=== PATIENT | male | born 1990 | race Caucasian/White ===

== ENCOUNTER 2020-08-20 06:17 | Emergency (ER) | payer SELFPAY ==
[~2020-08-20] VITALS: Ht 175.3 cm; Wt 86.0 kg
[2020-08-20 06:35] VITALS: BP 127/77
[2020-08-20] MEDS ORDERED: CIPR7.5D RIGHT EAR (07:18)
--- NOTE | 2020-08-20 07:19 | PHYS DOC ---
Past Medical History Past Medical History: Asthma Past Surgical History: Other Additional Past Surgical Histo: L chest Ca-deposit excision Smoking Status: Current Every Day Smoker Alcohol Use: None General Adult EDM: Chief Complaint: NAUSEA/VOMITING/DIARRHEA HPI: HPI: 30-year-old male past medical history of asthma presents the ED with his female spouse, (patient consents to his/her/their knowledge and involvement in pts' medical care), presents to the ED with complaints of right ear pain and popping that occurred while patient was vomiting around 3 AM this morning after eating at [employer] stating, "I think I ate something bad." Reports girlfriend had similar symptoms. Reports associated decreased hearing in right ear. No history of diving, hiking/high-altitudes, flying, recent swimming or difficulties equalizing middle ear pressure. Denies any current nausea or vomiting. No prior injury to the right ear. Review of Systems: Review of Systems: Constitutional: Denies fever or chills. [] Eyes: Denies change in visual acuity. [] HENT: Denies nasal congestion or sore throat or earache or ear drainage Respiratory: Denies cough or shortness of breath. [] Cardiovascular: Denies chest pain or hemoptysis GI: Denies nausea, vomiting, Musculoskeletal: Denies back pain or joint pain. [] Integument: Denies rash or diaphoresis Neurologic: Denies headache, dizziness, ataxia, focal weakness or sensory changes. [] Psychiatric: Denies depression or anxiety. [] Heart Score: C/O Chest Pain: No Risk Factors: Risk Factors: DM, Current or recent (<one month) smoker, HTN, HLP, family history of CAD, obesity. Risk Scores: Score 0 - 3: 2.5% MACE over next 6 weeks - Discharge Home Score 4 - 6: 20.3% MACE over next 6 weeks - Admit for Clinical Observation Score 7 - 10: 72.7% MACE over next 6 weeks - Early Invasive Strategies Allergies: Allergies: Allergies Coded Allergies Type Severity Reaction Last Updated Verified morphine Adverse Reaction Intermediate n/v 08/20/20 Yes Physical Exam: PE: Constitutional: Well developed, well nourished, no acute distress, non-toxic appearance, smells of tobacco HENT: Normocephalic, atraumatic, cerumen the left ear with partially visualized tympanic membrane with no erythema or effusion, right tympanic membrane intact with no erythema-very small less than 1 mm effusion, no obvious perforation Eyes: PERRLA, EOMI, conjunctiva normal-no injection, no discharge. Neck: Normal range of motion, supple, Cardiovascular: S1/2 present, regular rhythm Lungs & Thorax: Speaking in full sentences, bilateral equal chest rise, no tachypnea or increased work of breathing Skin: Warm, dry, no erythema, no rash. [] Extremities: No tenderness, no deformity Neurologic: Alert and oriented X 3, normal motor function, normal sensory function, no focal deficits noted. [] Psychologic: Affect normal, judgement normal, mood normal. [] Current Patient Data: Vital Signs: Vital Signs Date Time Temp Pulse Resp B/P (MAP) Pulse Ox O2 Delivery O2 Flow Rate FiO2 08/20/20 06:35 98.3 75 20 127/77 (94) 98 Room Air 98.3 EKG: EKG: [] Radiology/Procedures: Radiology/Procedures: [] Course & Med Decision Making: Course & Med Decision Making Pertinent Labs and Imaging studies reviewed. (See chart for details) Concern for right ear popping with mild hearing loss -no obvious perforation, will treat with Ciprodex. Patient with no associated dizziness, facial palsy or neurologic deficits. Will discharge home with strict ED return precautions were given for dizziness, neurologic deficits, severe headache, syncope or head injury. Encouraged urgent outpatient follow-up with PMD and ENT for definitive management. Life-threatening processes were considered but are low suspicion at this time, given history, physical exam and ED workup. Pt was educated on all prescription medications and adverse effects. All patient's questions were answered and pt was stable at time of discharge. Life/limb-threatening differential includes but is not limited to, auricular hematoma or perichondritis, malignant otitis externa, otitis externa or media, otomycosis, bullous myringitis, mastoiditis, hearing loss or vestibular disorder, tympanic membrane rupture/perforation/barotrauma, herpes zoster oticus, contact dermatitis, cholesteatoma, meningitis/encephalitis, brain abscess or venous/cavernous/cerebral sinus thrombosis. I spoken with the patient and her caregivers. I explained the patient's condition, diagnoses and treatment plan based on the information available to me at this time. I have answered the patient and her caregiver's questions and addressed any concerns. The patient and her caregivers have a good understanding of patient's diagnosis, condition and treatment plan as can be expected at this point. Vital signs have been stable. Patient's condition is stable and appropriate for discharge from the emergency department. Patient will pursue further outpatient evaluation with primary care physician or other designated or consulting physician as outlined in the discharge instructions. The patient and/or caregivers are agreeable to this plan of care and follow-up instructions have been explained in detail. The patient and/or caregivers have received these instructions in written form and have expressed an understanding of the discharge instructions. The patient and/or caregivers are aware that any significant change of condition or worsening of symptoms should prompt immediate return to this or the closest emergency department or call to 1. Carlene Disclaimer: Carlene Disclaimer: This electronic medical record was generated, in whole or in part, using a voice recognition dictation system. Departure Departure Impression: Primary Impression: Otalgia, right ear Additional Impression: Nausea & vomiting Disposition: 01 HOME / SELF CARE / HOMELESS Condition: STABLE Referrals: NO PCP (PCP) Follow-up with your primary care physician in 24 to 48 hours OR FOLLOW UP WITH FAMILY MEDICINE: [address] [facility], [facility] [address] [place] [address] Patient Instructions: Nausea and Vomiting, Otalgia, Tympanic Membrane Perforation-SportsMed Additional Instructions: FOLLOW UP WITH ENT: FOR DEFINITIVE MANAGEMENT within 3-5 days Otolaryngology [address], [address] [place] [address] [facility] [address] [place] [id number] EMERGENCY DEPARTMENT GENERAL DISCHARGE INSTRUCTIONS Thank you for coming to [facility] Emergency Department (ED) today and trusting us with you care. We trust that you had a positive experience in our Emergency Department. If you wish to speak to the department management, you may call the Director at [phone]. YOUR FOLLOW UP INSTRUCTIONS ARE FOLLOWS: 1. Do you have a private Doctor? If you do not have a private doctor, please ask for a resource list of physicians or clinics that may be able to assist you with follow up care. 2. The Emergency Physicain has interpreted your x-rays. The X-Ray specialist will also review them. If there is a change in the findings, you will be notified in 48 hours when at all possible. 3. A lab test or culture has been done, your results will be reviewed and you will be notified if you need a change in treatment. ADDITIONAL INSTRUCTIONS AND INFORMATION: 1. Your care today has been supervised by a physician who is specially trained in emergency care. Many problems require more than one evaluation for a complete diagnosis and treatment. We recommend that you schedule your follow up appointment as recommended to ensure complete treatment of you illness or injury. If you are unable to obtain follow up care and continue to have a problem, or if your condition worsens, we recommend that you return to the ED. 2. We are not able to safely determine your condition over the phone nor are we able to give sound medical advice over the phone. For these safety reasons, if you call for medical advice we will ask you to come to the ED for further evaluation. 3. If you have any questions regarding these discharge instructions please call the ED at [phone]. SAFETY INFORMATION: In the interest of safety, wellness, and injury prevention; we encourage you to wear your sealbelt, if you smoke; quite smoking, and we encourage family to use a protective helmet for bicycling and other sporting events that present an increased risk for head injury. IF YOUR SYMPTOMS WORSEN OR NEW SYMPTOMS DEVELOP, OR YOU HAVE CONCERNS ABOUT YOUR CONDITION; OR IF YOUR CONDITION WORSENS WHILE YOU ARE WAITING FOR YOUR FOLLOW UP APPOINTMENT; EITHER CONTACT YOUR PRIMARY CARE DOCTOR, THE PHYSICIAN WHOSE NAME AND NUMBER YOU WERE GIVEN, OR RETURN TO THE ED IMMEDIATELY. Scripts Ciprofloxacin Hcl/Dexameth (CIPRODEX OTIC SUSPENSION) 7.5 Ml Drops.susp 3 DROP RIGHT EAR BID for 7 Days, #7.5 ML Prov: KIA KRUSE DO 08/20/20 KIA KRUSE DO Aug 20, 2020 07:19
== END 2020-08-20 08:09 | disposition home or self-care (01) ==
LOC: ER 06:17
DX: H92.01 Otalgia, right ear (principal); R11.2 Nausea with vomiting, unspecified; J45.909 Unspecified asthma, uncomplicated; F17.200 Nicotine dependence, unspecified, uncomplicated; Z88.5 Allergy status to narcotic agent
CPT/HCPCS: 99283

== ENCOUNTER 2020-11-13 05:46 | Observation (INO) | payer SELFPAY ==
[~2020-11-13] VITALS: Ht 175.3 cm; Wt 80.2 kg
[~2020-11-13 05:46] MED LIST: CIPR7.5D RIGHT EAR
--- NOTE | 2020-11-13 06:09 | ED.ADGEN ---
Past Medical History Past Medical History: Asthma Past Surgical History: Other Additional Past Surgical Histo: L chest Ca-deposit excision Smoking Status: Current Every Day Smoker Alcohol Use: None General Adult EDM: Chief Complaint: CHEST PAIN HPI: HPI: Patient is a 30-year-old male who arrives ambulatory to the emergency department complaining of chest pain. Patient reports he was sleeping when he developed substernal chest pain. Patient reports his pain is heaviness and experiencing shortness of air. Patient reports has had pain like this previously whenever he used energy drinks. Patient states he does not use energy drinks anymore. Patient further states he has not been ill or experience any fever or cough. He further denies any known cardiac history. He is awake, alert and nontoxic- appearing. Review of Systems: Review of Systems: Constitutional: Denies fever or chills. [] Eyes: Denies change in visual acuity. [] HENT: Denies nasal congestion or sore throat. [] Respiratory: Reports shortness of air. Denies cough. [] Cardiovascular: Reports chest pain [] GI: Denies abdominal pain, nausea, vomiting, bloody stools or diarrhea. [] : Denies dysuria. [] Musculoskeletal: Denies back pain or joint pain. [] Integument: Denies rash. [] Neurologic: Denies headache, focal weakness or sensory changes. [] Endocrine: Denies polyuria or polydipsia. [] Lymphatic: Denies swollen glands. [] Psychiatric: Denies depression or anxiety. [] Current Medications: Current Medications Medications (Trade) Dose Ordered Sig/[facility] Start Time Stop Time Status Last Admin Dose Admin Aspirin (Aspirin Chewable) 324 mg 1X ONCE 11/13/20 06:30 11/13/20 06:32 DC 11/13/20 06:23 324 MG Allergies: Allergies: Allergies Coded Allergies Type Severity Reaction Last Updated Verified morphine Adverse Reaction Intermediate n/v 08/20/20 Yes Physical Exam: PE: Constitutional: Well developed, well nourished, no acute distress, non-toxic appearance. [] HENT: Normocephalic, atraumatic, bilateral external ears normal, oropharynx moist, no oral exudates, nose normal. [] Eyes: PERRLA, EOMI, conjunctiva normal, no discharge. [] Neck: Normal range of motion, no tenderness, supple, no stridor. [] Cardiovascular:Heart rate regular rhythm, no murmur [] Lungs & Thorax: Bilateral breath sounds clear to auscultation [] Abdomen: Bowel sounds normal, soft, no tenderness, no masses, no pulsatile masses. [] Skin: Warm, dry, no erythema, no rash. [] Back: No tenderness, no CVA tenderness. [] Extremities: No tenderness, no cyanosis, no clubbing, ROM intact, no edema. [] Neurologic: Alert and oriented X 3, normal motor function, normal sensory function, no focal deficits noted. [] Psychologic: Affect normal, judgement normal, mood normal. [] Current Patient Data: Labs: Laboratory Tests Test 11/13/20 06:14 11/13/20 06:25 White Blood Count 8.3 x10^3/uL (4.0-11.0) Red Blood Count 4.27 x10^6/uL (4.30-5.70) L Hemoglobin 13.1 g/dL (13.0-17.5) Hematocrit 38.1 % (39.0-53.0) L Mean Corpuscular Volume 89 fL (79-100) Mean Corpuscular Hemoglobin 31 pg (25-35) Mean Corpuscular Hemoglobin Concent 34 g/dL (31-37) Red Cell Distribution Width 14.4 % (11.5-14.5) Platelet Count 310 x10^3/uL (140-400) Neutrophils (%) (Auto) 71 % (31-73) Lymphocytes (%) (Auto) 22 % (24-48) L Monocytes (%) (Auto) 5 % (0-9) Eosinophils (%) (Auto) 2 % (0-3) Basophils (%) (Auto) 1 % (0-3) Neutrophils # (Auto) 5.9 x10^3/uL (1.8-7.7) Lymphocytes # (Auto) 1.8 x10^3/uL (1.0-4.8) Monocytes # (Auto) 0.4 x10^3/uL (0.0-1.1) Eosinophils # (Auto) 0.1 x10^3/uL (0.0-0.7) Basophils # (Auto) 0.1 x10^3/uL (0.0-0.2) Sodium Level 141 mmol/L (136-145) Potassium Level 3.6 mmol/L (3.5-5.1) Chloride Level 103 mmol/L (98-107) Carbon Dioxide Level 27 mmol/L (21-32) Anion Gap 11 (6-14) Blood Urea Nitrogen 8 mg/dL (8-26) Creatinine 1.0 mg/dL (0.7-1.3) Estimated GFR (Cockcroft-Gault) 87.7 BUN/Creatinine Ratio 8 (6-20) Glucose Level 85 mg/dL (70-99) Calcium Level 9.1 mg/dL (8.5-10.1) Total Bilirubin 0.5 mg/dL (0.2-1.0) Aspartate Amino Transferase (AST) 19 U/L (15-37) Alanine Aminotransferase (ALT) 22 U/L (16-63) Alkaline Phosphatase 93 U/L (46-116) Troponin I Quantitative < 0.017 ng/mL (0.000-0.055) HD-Dut-L-Type Natriuretic Peptide 124 pg/mL (0-124) Total Protein 7.3 g/dL (6.4-8.2) Albumin 3.7 g/dL (3.4-5.0) Albumin/Globulin Ratio 1.0 (1.0-1.7) Urine Opiates Screen Neg (NEG) Urine Methadone Screen Neg (NEG) Urine Barbiturates Neg (NEG) Urine Phencyclidine Screen Neg (NEG) Urine Amphetamine/Methamphetamine Neg (NEG) Urine Benzodiazepines Screen Neg (NEG) Urine Cocaine Screen Neg (NEG) Urine Cannabinoids Screen Pos (NEG) Urine Ethyl Alcohol Neg (NEG) Laboratory Tests 11/13/20 06:14 Laboratory Tests 11/13/20 06:14 Vital Signs: Vital Signs Date Time Temp Pulse Resp B/P (MAP) Pulse Ox O2 Delivery O2 Flow Rate FiO2 11/13/20 05:49 98.0 83 18 137/70 (92) 97 Room Air 98.0 EKG: EKG: [] EKG was obtained at 5:49 AM and revealed a sinus rhythm with ventricular rate of 83 bpm. There are premature atrial complexes present without acute ST/T wave changes to denote ischemia. Heart Score: C/O Chest Pain: Yes HEART Score for Chest Pain: HEART Score for Chest Pain Response (Comments) Value History Slighlty/Non-Suspicious 0 ECG Normal 0 Age < 45 0 Risk Factors 1 or 2 Risk Factors 1 Troponin < Normal Limit 0 Total 1 Risk Factors: Risk Factors: DM, Current or recent (<one month) smoker, HTN, HLP, family history of CAD, obesity. Risk Scores: Score 0 - 3: 2.5% MACE over next 6 weeks - Discharge Home Score 4 - 6: 20.3% MACE over next 6 weeks - Admit for Clinical Observation Score 7 - 10: 72.7% MACE over next 6 weeks - Early Invasive Strategies Radiology/Procedures: Radiology/Procedures: [] Impression: [facility] [address] [place] [address] IMAGING REPORT Signed PATIENT: DOMONIQUE MALIN ACCOUNT: [id number] : 1990 LOCATION: ER AGE: 30 SEX: M EXAM STATUS: REG ER ORD. PHYSICIAN: SAV STARK DO REASON: pain PROCEDURE: PORTABLE CHEST 1V EXAM: CHEST ONE VIEW. HISTORY: Chest pain. COMPARISON: None. FINDINGS: A frontal view of the chest is obtained. There are no confluent infiltrates. There is no pneumothorax or pleural effusion. The heart is not enlarged. IMPRESSION: 1. No confluent infiltrates. Electronically signed by: Cassidy Haro MD (11/13/2020 6:59 AM) [facility] DICTATED and SIGNED BY: KASIA HARO MD DATE: 11/13/20 [id number] 0 Course & Med Decision Making: Course & Med Decision Making Pertinent Labs and Imaging studies reviewed. (See chart for details) [] Carlene Disclaimer: Carlene Disclaimer: This electronic medical record was generated, in whole or in part, using a voice recognition dictation system. Departure Departure Impression: Primary Impression: Chest pain Additional Impressions: Person under investigation for COVID-19 Tobacco dependence Disposition: ADMITTED INPATIENT Admitting Physician: LAVONNE Condition: STABLE Referrals: NO PCP (PCP) Problem Qualifiers SAV STARK DO Nov 13, 2020 06:09
[2020-11-13 06:23] LABS: BASO # 0.1 x10^3/uL (0.0-0.2); BASO % 1 % (0-3); EOS # 0.1 x10^3/uL (0.0-0.7); EOS % 2 % (0-3); HEMATOCRIT 38.1 % (39.0-53.0); HEMOGLOBIN 13.1 g/dL (13.0-17.5); LYMPH # 1.8 x10^3/uL (1.0-4.8); LYMPH % 22 % (24-48); MEAN CORPUSCULAR HEMOGLOBIN 31 pg (25-35); MEAN CORPUSCULAR HGB CONC 34 g/dL (31-37); MEAN CORPUSCULAR VOLUME 89 fL (79-100); MONO # 0.4 x10^3/uL (0.0-1.1); MONO % 5 % (0-9); NEUT # 5.9 x10^3/uL (1.8-7.7); NEUT % 71 % (31-73); PLATELET COUNT 310 x10^3/uL (140-400); RED BLOOD COUNT 4.27 x10^6/uL (4.30-5.70); RED CELL DISTRIBUTION WIDTH 14.4 % (11.5-14.5); WHITE BLOOD COUNT 8.3 x10^3/uL (4.0-11.0)
--- NOTE | 2020-11-13 06:26 | EKG ---
[facility] [address] [place] [address] Test Date: 2020-11-13 Test Time: 05:49:17 Pat Name: DOMONIQUE MALIN Department: Room: Gender: M [employer]: : 1990 Requested By: SAV STARK Order Number: [id number] Reading MD: Measurements Intervals [place] Rate: 83 P: 56 DE: 130 QRS: 43 QRSD: 86 T: 21 QT: 348 QTc: 409 Interpretive Statements SINUS RHYTHM ATRIAL PREMATURE COMPLEX(ES) OTHERWISE NORMAL ECG RI6.01 No previous ECG available for comparison
[2020-11-13] MEDS ORDERED: ASPIRIN CHEWABLE 81 MG TABLET. PO ONE ×2 (06:30→07:15)
[2020-11-13 06:38] LABS: CALCIUM 9.1 mg/dL (8.5-10.1); GFR 87.7; POTASSIUM 3.6 mmol/L (3.5-5.1)
[2020-11-13 06:43] LABS: ALBUMIN 3.7 g/dL (3.4-5.0); TOTAL BILIRUBIN 0.5 mg/dL (0.2-1.0); TOTAL PROTEIN 7.3 g/dL (6.4-8.2)
[2020-11-13 06:54] LABS: BARBITURATES NEG (NEG); BENZODIAZEPINES NEG (NEG); CANNABINOIDS POS (NEG); COCAINE NEG (NEG); METHADONE NEG (NEG); OPIATES NEG (NEG); PHENCYCLIDINE NEG (NEG)
[2020-11-13 06:55] LABS: AMPHETAMINE/METHAMPHETAMINE NEG (NEG)
--- NOTE | 2020-11-13 07:01 | RAD ---
EXAM: CHEST ONE VIEW. HISTORY: Chest pain. COMPARISON: None. FINDINGS: A frontal view of the chest is obtained. There are no confluent infiltrates. There is no pneumothorax or pleural effusion. The heart is not en larged. IMPRESSION: 1. No confluent infiltrates. Electronically signed by: Cassidy Haro MD (11/13/2020 6:59 AM) [facility]
[2020-11-13] MEDS ORDERED: ONDANSETRON PF 4 MG/2 ML VIAL. IVP PRN (07:15)
--- NOTE | 2020-11-13 08:00 | NUR ---
Patient arrived to room 669 from ER around 0800. Patient A&OX4. VSS. Still complains of pressure in midsternal chest. The patient, DOMONIQUE MALIN, 30 y/o, M admitted by JORGE HARE III, DO, was given written information regarding hospital policies, unit procedures and contact persons. Valuables were checked and noted. TAJ Thompson helped with admission questions. Will continue to monitor.
[2020-11-13 08:20] VITALS: BP 133/69
[2020-11-13 10:51] VITALS: BP 119/47
--- NOTE | 2020-11-13 10:54 | PDOC2 ---
CARDIAC CONSULT DATE OF CONSULT Date of Consult DATE: 11/13/20 TIME: 10:49 REASON FOR CONSULT Reason for Consult: Chest pain, bradycardia REFERRING PHYSICIAN Referring Physician: Dr. Perez SOURCE Source: Chart review, Patient HISTORY OF PRESENT ILLNESS HISTORY OF PRESENT ILLNESS This is a 30 yo male who presented to chest pain, palpitations. Patient reports he woke up this morning early with pressure in his central chest. Also experiencing intermittent sharp pain. No specific worsening or reliving factors. Pain does not radiate. No associated dizziness, diaphoresis, palpitations, SOA, or nausea/vomiting. No recent illness or fevers. Does reports history of "skipped beats" that prompted his to go to the ED several years ago. Reports this was contributed to his high intake of energy drinks. No longer consumes e nergy drinks although drinks multiple cokes daily. 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 Reports mother of heart failure in her late 30's. PAST MEDICAL HISTORY Cardiovascular: No pertinent hx Pulmonary: Asthma PAST SURGICAL HISTORY Past Surgical History: Other (has Ca deposit removed from breast) FAMILY HISTORY Family History: Heart Disease, Hypertension SOCIAL HISTORY Smoke: No ALCOHOL: none Drugs: Marijuana, Other (h/o meth use. clean 4 years ) Lives: Alone CURRENT MEDICATIONS CURRENT MEDICATIONS Current Medications Medications (Trade) Dose Ordered Sig/Jimmy Route PRN Reason Start Time Stop Time Status Last Admin Dose Admin Aspirin (Aspirin Chewable) 324 mg 1X ONCE PO 11/13/20 06:30 11/13/20 06:32 DC 11/13/20 06:23 ALLERGIES ALLERGIES: Coded Allergies: morphine (Verified Adverse Reaction, Intermediate, n/v, 08/20/20) ROS Review of System 14 point ROS conducted with pertinent positives noted above in HPI PHYSICAL EXAM General: Alert, Oriented X3, Cooperative, No acute distress HEENT: Atraumatic Lungs: Clear to auscultation Heart: Regular rate (SR/SB with frequent PAC's, PVC's ) Abdomen: Soft, No tenderness Extremities: No edema, Normal pulses Skin: No significant lesion Neuro: Normal speech, Sensation intact Psych/Mental Status: Mental status NL, Mood NL MUSCULOSKELETAL: No deformity VITALS/I&O VITALS/I&O: Vital Signs Date Time Temp Pulse Resp B/P (MAP) Pulse Ox O2 Delivery O2 Flow Rate FiO2 11/13/20 08:20 97.2 69 18 133/69 (90) 97 Room Air 97.2 LABS Lab: Laboratory Tests Test 11/13/20 06:14 11/13/20 06:25 11/13/20 09:20 White Blood Count 8.3 x10^3/uL (4.0-11.0) Red Blood Count 4.27 x10^6/uL (4.30-5.70) L Hemoglobin 13.1 g/dL (13.0-17.5) Hematocrit 38.1 % (39.0-53.0) L Mean Corpuscular Volume 89 fL (79-100) Mean Corpuscular Hemoglobin 31 pg (25-35) Mean Corpuscular Hemoglobin Concent 34 g/dL (31-37) Red Cell Distribution Width 14.4 % (11.5-14.5) Platelet Count 310 x10^3/uL (140-400) Neutrophils (%) (Auto) 71 % (31-73) Lymphocytes (%) (Auto) 22 % (24-48) L Monocytes (%) (Auto) 5 % (0-9) Eosinophils (%) (Auto) 2 % (0-3) Basophils (%) (Auto) 1 % (0-3) Neutrophils # (Auto) 5.9 x10^3/uL (1.8-7.7) Lymphocytes # (Auto) 1.8 x10^3/uL (1.0-4.8) Monocytes # (Auto) 0.4 x10^3/uL (0.0-1.1) Eosinophils # (Auto) 0.1 x10^3/uL (0.0-0.7) Basophils # (Auto) 0.1 x10^3/uL (0.0-0.2) Sodium Level 141 mmol/L (136-145) Potassium Level 3.6 mmol/L (3.5-5.1) Chloride Level 103 mmol/L (98-107) Carbon Dioxide Level 27 mmol/L (21-32) Anion Gap 11 (6-14) Blood Urea Nitrogen 8 mg/dL (8-26) Creatinine 1.0 mg/dL (0.7-1.3) Estimated GFR (Cockcroft-Gault) 87.7 BUN/Creatinine Ratio 8 (6-20) Glucose Level 85 mg/dL (70-99) Calcium Level 9.1 mg/dL (8.5-10.1) Total Bilirubin 0.5 mg/dL (0.2-1.0) Aspartate Amino Transferase (AST) 19 U/L (15-37) Alanine Aminotransferase (ALT) 22 U/L (16-63) Alkaline Phosphatase 93 U/L (46-116) Troponin I Quantitative < 0.017 ng/mL (0.000-0.055) < 0.017 ng/mL (0.000-0.055) OE-Env-R-Type Natriuretic Peptide 124 pg/mL (0-124) Total Protein 7.3 g/dL (6.4-8.2) Albumin 3.7 g/dL (3.4-5.0) Albumin/Globulin Ratio 1.0 (1.0-1.7) Urine Opiates Screen Neg (NEG) Urine Methadone Screen Neg (NEG) Urine Barbiturates Neg (NEG) Urine Phencyclidine Screen Neg (NEG) Urine Amphetamine/Methamphetamine Neg (NEG) Urine Benzodiazepines Screen Neg (NEG) Urine Cocaine Screen Neg (NEG) Urine Cannabinoids Screen Pos (NEG) Urine Ethyl Alcohol Neg (NEG) Laboratory Tests 11/13/20 06:14 Laboratory Tests 11/13/20 06:14 ASSESSMENT/PLAN ASSESSMENT/PLAN 1. Chest pain, atypical. AMI ruled out. EKG without significant acute changes 2. Arrhythmia; tele noted with frequent PVC's, PAC's 3. Sinus bradycardia; lowest 55. No pauses 4. Marjuana use 5. H/o meth use; clean x4 years 6. Family history of cardiomyopathy Recommendations Check TSH, Mg level Avoid AV marco blocking agents Echo to assess LV systolic function Supportive care ZEYAD BAPTISTE APRN Nov 13, 2020 10:53
[2020-11-13 12:48] LABS: CHOLESTEROL/HDL RATIO 4.2
--- NOTE | 2020-11-13 12:59 | HP ---
ADMIT DATE: 11/13/2020 CHIEF COMPLAINT: Chest pain. HISTORY OF PRESENT ILLNESS: The patient is a pleasant, relatively healthy 30-year-old male, presented to the ER today with chest pain. He is concerned that he might be having a heart attack because his mom and dad both in their 30s of coronary artery disease and heart failure. He also smokes. I discussed the case with ER physician. We are admitting the patient with consultation to Cardiology. PAST MEDICAL HISTORY: Tobacco abuse, asthma, left chest surgery for some type of calcium deposition. ALLERGIES: MORPHINE. FAMILY HISTORY: Coronary artery disease. His mom and dad of coronary artery disease and heart failure. SOCIAL HISTORY: He smokes. He is , has kids. MEDICATIONS: Reviewed, please refer to the MRAD. REVIEW OF SYSTEMS: CARDIAC: He complains of chest pain. GENERAL: No history of weight change, weakness or fevers. SKIN: No bruising, hair changes or rashes. EYES: No blurred, double or loss of vision. NOSE AND THROAT: No history of nosebleeds, hoarseness or sore throat. LUNGS: Denies cough, hemoptysis, wheezing or shortness of breath. GASTROINTESTINAL: Denies changes in appetite, nausea, vomiting, diarrhea or constipation. GENITOURINARY: No history of frequency, urgency, hesitancy or nocturia. NEUROLOGIC: Denies history of numbness, tingling, tremor or weakness. PSYCHIATRIC: No history of panic, anxiety or depression. ENDOCRINE: No history of heat or cold intolerance, polyuria or polydipsia. EXTREMITIES: Denies muscle weakness, joint pain, pain on walking or stiffness. PHYSICAL EXAMINATION: VITALS: Within normal limits and are stable. GENERAL: No apparent distress. Alert and oriented. HENT: Normocephalic atraumatic, external auditory canals are patent. EYES: Extraocular muscles are intact, pupils are equally round and reactive to light and accommodation. MUSCULOSKELETAL: Well developed, well nourished, good range of motion. ENDOCRINE: No thyromegaly was palpated. LYMPHATICS: No cervical chain or axillary nodes were noted. HEMATOPOIETIC: No bruising. NECK: Supple, no JVD, no thyromegaly was noted. LUNGS: Clear to auscultation in all lung morocho without rhonchi or wheezing. HEART: RRR, S1, S2 present. Peripheral pulses intact, no obvious murmurs were noted. ABDOMEN: Soft, nontender. Positive bowel sounds no organomegaly, normal bowel sounds. EXTREMITIES: Without any cyanosis, clubbing, or edema. Pedal pulses intact, Homans sign is negative. NEUROLOGIC: Normal speech, normal tone. A and O x 3, moves all extremities, no obvious focal deficits. PSYCHIATRIC: Normal affect, normal mood. Stable. SKIN: No ulcerations or rashes, good skin turgor, no jaundice. VASCULAR: Good capillary refill, neurovascular bundle appears to be intact. LABORATORY DATA: Troponin is 0. EKG shows sinus arrhythmia with some premature ventricular contractions. ASSESSMENT AND PLAN: Chest pain, rule out coronary artery disease. The patient has been admitted. We will check serial enzymes, serial EKGs, cardiac monitoring, home meds. DVT prophylaxis. Full code. Cigarette cessation education. Prognosis is guarded. [facility] [place] DR: Den TID: [id number]
--- NOTE | 2020-11-13 13:12 | NUR ---
SS following for discharge planning. SS reviewed pt chart and discussed with pt RN. Pt is from home with spouse and is currently on room air. Cardiology consulted. ECHO ordered. Self pay. Med Assist following. SS will continue to follow for discharge planning.
--- NOTE | 2020-11-13 17:11 | CARD ---
MR#: [id number] Date of Study: 11/13/2020 Ordering Physician: ZEYAD BAPTISTE, Referring Physician: ZEYAD BAPTISTE, Aston: Ernst Medrano [facility] APPROVED REPORT EXAM: Two-dimensional and M-mode echocardiogram with Doppler and color Doppler. Other Information Quality : AverageHR: 60bpm Rhythm : NSR INDICATION Chest pressure PVC's RISK FACTORS Smoking 2D DIMENSIONS Left Atrium(2D)3.6 (1.6-4.0cm)IVSd1.0 (0.7-1.1cm) Aortic Root(2D)2.9 (2.0-3.7cm)LVDd5.1 (3.9-5.9cm) LVOT Diameter2.1 (1.8-2.4cm)PWd1.0 (0.7-1.1cm) LVDs3.7 (2.5-4.0cm)FS (%) 27.5 % SV67.1 mlLVEF(%)53.1 (>50%) Aortic Valve AoV Peak Ricardo.170.7cm/sAoV VTI36.1cm AO Peak GR.11.7mmHgLVOT Peak Ricardo.81.7cm/s AO Mean GR.6mmHgAVA (VMAX)1.62cm2 Mitral Valve MV E Bygswfsi669.8cm/sMV E Peak Gr.4mmHg MV DECEL [id number] A Sgrxgvvh33.7cm/s MV E Mean Gr.1mmHgE/A Ratio2.3 Pulmonary Valve PV Peak Dnmvhzcl55.3cm/s Tricuspid Valve TR P. Lqyvvnko953pw/sTR Peak Gr.25mmHg LEFT VENTRICLE The left ventricle is normal size. There is normal left ventricular wall thickness. The left ventricu lar systolic function is normal. The Ejection Fraction is 55%. There is normal LV segmental wall padmini on. No left ventricle thrombus noted on this study. There is no ventricular septal defect visualized. There is no left ventricular aneurysm. There is no mass noted in the left ventricle. RIGHT VENTRICLE The right ventricle is normal size. There is normal right ventricular wall thickness. The right ventr icular systolic function is normal. ATRIA The left atrium size is normal. The right atrium size is normal. The interatrial septum is intact wit h no evidence for an atrial septal defect or patent foramen ovale as noted on 2-D or Doppler imaging. AORTIC VALVE The aortic valve is normal in structure and function. Doppler and Color Flow revealed no significant aortic regurgitation. There is no significant aortic valvular stenosis. There is no aortic valvular v egetation. MITRAL VALVE The mitral valve is normal in structure and function. There is no evidence of mitral valve prolapse. There is no mitral valve stenosis. Doppler and Color Flow revealed no mitral valve regurgitation note d. TRICUSPID VALVE The tricuspid valve is normal in structure and function. Doppler and Color Flow revealed trace tricus pid regurgitation. There is no tricuspid valve prolapse or vegetation. There is no tricuspid valve st enosis. PULMONIC VALVE The pulmonary valve is normal in structure and function. Doppler and Color Flow revealed no pulmonic valvular regurgitation. There is no pulmonic valvular stenosis. GREAT VESSELS The aortic root is normal in size. The ascending aorta is normal in size. The pulmonary artery is nor mal. The IVC is normal in size and collapses >50% with inspiration. PERICARDIAL EFFUSION There is no pleural effusion. There is no evidence of significant pericardial effusion. Critical Notification Critical Value: No <Conclusion> The left ventricular systolic function is normal. The Ejection Fraction is 55%. There is normal LV segmental wall motion. Trace tricuspid regurgitation. There is no evidence of significant pericardial effusion. Signed by : Duarte Potter, Electronically Approved : 11/13/2020 17:10:23
--- NOTE | 2020-11-13 17:30 | NUR ---
Patient had refused COVID PCR in ER, however wanted a visitor, Dr. Ana gibbons with a rapid COVID swab & if it is negative patient can have visitor. Patient allowed this RN to rapid swab him & is negative.
[2020-11-13 19:00] VITALS: BP 153/65
[2020-11-13 22:50] VITALS: BP 140/67
[2020-11-14 03:00] VITALS: BP 105/51
[2020-11-14 07:24] VITALS: BP 118/66
[2020-11-14 10:25] VITALS: BP 124/63
[2020-11-14] MEDS ORDERED: ATOR20TA58 PO (11:47)
--- NOTE | 2020-11-14 12:07 | NUR ---
SS following up with discharge planning. SS reviewed pt chart and discussed with pt RN. Pt is currently on room air. Self pay. Med Assist following. Discharge order on the chart for home with self care.
--- NOTE | 2020-11-14 12:40 | PDOC ---
[employer] PROGRESS NOTE Date of Service DOS: DATE: 11/14/20 TIME: 12:34 Chief Complaint Chief Complaint Chest pain Asthma Tobacco abuse Marijuana abuse History of Present Illness History of Present Illness 11/14/2020: Pt seen and examined. Discussed with RN. Chart reviewed. Pt in NAD. Family hx notable for CAD, HF, HTN. Discussed discharge with cardiology. Vitals/I&O Vitals/I&O: Vital Signs Date Time Temp Pulse Resp B/P (MAP) Pulse Ox O2 Delivery O2 Flow Rate FiO2 11/14/20 10:25 97.7 71 18 124/63 (83) 100 Room Air 97.7 I & O 11/13/20 11/13/20 11/14/20 15:00 23:00 07:00 Intake Total 500 ml 650 ml 500 ml Balance 500 ml 650 ml 500 ml Physical Exam General: Alert, Oriented X3, Cooperative, No acute distress Heart: Regular rate (SR/SB with frequent PAC's, PVC's ) Abdomen: Soft, No tenderness Extremities: No edema, Normal pulses Skin: No significant lesion Labs Labs: Laboratory Tests Test 11/13/20 16:05 SARS-CoV-2 Antigen (Rapid) Negative (NEGATIVE) Assessment and Plan Assessmemt and Plan Problems Medical Problems: (1) Chest pain Status: Acute (2) Person under investigation for COVID-19 Status: Acute (3) Tobacco dependence Status: Acute Chest pain Asthma Tobacco abuse Marijuana abuse Plan: 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 Justifications for Admission Other Justification JORGE HARE III DO Nov 14, 2020 12:40
--- NOTE | 2020-11-14 13:28 | DS ---
DATE OF DISCHARGE: 11/14/2020 ADMISSION DIAGNOSIS: Chest pain. DISCHARGE DIAGNOSES: Resolving atypical chest pain, previous history of drug abuse 4 years ago. HOSPITAL COURSE: The patient is a pleasant middle-aged male who presented with chest pain. We checked serial enzymes, serial EKGs. We consulted Cardiology. His workup so far is negative. I did talk to Dr. Haji today and he feels like the patient does have a slight arrhythmia at times, but perhaps this is secondary to his previous drug abuse many years ago. Basically, he is doing well. We will plan to discharge to home. DISPOSITION: Home. ACTIVITY: As tolerated. DIET: Low sodium. DISCHARGE MEDICATIONS: Please see the MRAD. Atorvastatin 20 a day and Cipro ear drops to the right ear. TOTAL TIME: Thirty four minutes. [place] [address]: Den TID: [id number]
--- NOTE | 2020-11-14 13:41 | NUR ---
Discharge Note: [facility] Discharge instructions and discharge home medications reviewed with Patient and a copy given. All questions have been answered and understanding verbalized. New prescription given and understanding verbalized. Pt walked out in stable condition.
--- NOTE | 2020-11-14 14:25 | PDOC ---
PROGRESS NOTES Date of Service DATE: 11/14/20 TIME: 14:23 Subjective Subjective Patient seen and examined Objective Objective Vital Signs Date Time Temp Pulse Resp B/P (MAP) Pulse Ox O2 Delivery O2 Flow Rate FiO2 11/14/20 10:25 97.7 71 18 124/63 (83) 100 Room Air 97.7 Intake and Output 11/14/20 07:00 Intake Total 1650 ml Balance 1650 ml Intake Oral 1650 ml # Voids 1 Physical Exam Abdomen: Normal bowel sounds Heart: Regular rate General: No acute distress Lungs: Clear to auscultation Assessment Assessment Problems Medical Problems: (1) Chest pain Status: Acute (2) Person under investigation for COVID-19 Status: Acute (3) Tobacco dependence Status: Acute Chest pain, atypical. AMI ruled out. EKG without significant acute changes. The patient is feeling better. Arrhythmia; tele noted with frequent PVC's, PAC's. Telemetry has improved overnight. Echocardiogram today shows intact LV systolic function with an ejection fraction of 55% and trace tricuspid regurgitation. We will continue present treatment. We will arrange outpatient follow-up. Sinus bradycardia; lowest 55. No pauses. Improved overnight. H/o meth use; clean x4 years Family history of cardiomyopathy. Echo with normal ejection fraction as above. Hyperlipidemia. Patient been started on statins. Comment Review of Relevant I have reviewed the following items bhavana (where applicable) has been applied. Labs Laboratory Tests Test 11/13/20 06:14 11/13/20 06:25 11/13/20 09:20 11/13/20 16:05 White Blood Count 8.3 x10^3/uL (4.0-11.0) Red Blood Count 4.27 x10^6/uL (4.30-5.70) Hemoglobin 13.1 g/dL (13.0-17.5) Hematocrit 38.1 % (39.0-53.0) Mean Corpuscular Volume 89 fL (79-100) Mean Corpuscular Hemoglobin 31 pg (25-35) Mean Corpuscular Hemoglobin Concent 34 g/dL (31-37) Red Cell Distribution Width 14.4 % (11.5-14.5) Platelet Count 310 x10^3/uL (140-400) Neutrophils (%) (Auto) 71 % (31-73) Lymphocytes (%) (Auto) 22 % (24-48) Monocytes (%) (Auto) 5 % (0-9) Eosinophils (%) (Auto) 2 % (0-3) Basophils (%) (Auto) 1 % (0-3) Neutrophils # (Auto) 5.9 x10^3/uL (1.8-7.7) Lymphocytes # (Auto) 1.8 x10^3/uL (1.0-4.8) Monocytes # (Auto) 0.4 x10^3/uL (0.0-1.1) Eosinophils # (Auto) 0.1 x10^3/uL (0.0-0.7) Basophils # (Auto) 0.1 x10^3/uL (0.0-0.2) Sodium Level 141 mmol/L (136-145) Potassium Level 3.6 mmol/L (3.5-5.1) Chloride Level 103 mmol/L (98-107) Carbon Dioxide Level 27 mmol/L (21-32) Anion Gap 11 (6-14) Blood Urea Nitrogen 8 mg/dL (8-26) Creatinine 1.0 mg/dL (0.7-1.3) Estimated GFR (Cockcroft-Gault) 87.7 BUN/Creatinine Ratio 8 (6-20) Glucose Level 85 mg/dL (70-99) Calcium Level 9.1 mg/dL (8.5-10.1) Total Bilirubin 0.5 mg/dL (0.2-1.0) Aspartate Amino Transf (AST/SGOT) 19 U/L (15-37) Alanine Aminotransferase (ALT/SGPT) 22 U/L (16-63) Alkaline Phosphatase 93 U/L (46-116) Troponin I Quantitative < 0.017 ng/mL (0.000-0.055) < 0.017 ng/mL (0.000-0.055) KU-Tpm-C-Type Natriuretic Peptide 124 pg/mL (0-124) Total Protein 7.3 g/dL (6.4-8.2) Albumin 3.7 g/dL (3.4-5.0) Albumin/Globulin Ratio 1.0 (1.0-1.7) Triglycerides Level 44 mg/dL (0-150) Cholesterol Level 174 mg/dL (0-200) LDL Cholesterol, Calculated 124 mg/dL (0-100) VLDL Cholesterol, Calculated 9 mg/dL (0-40) Non-HDL Cholesterol Calculated 133 mg/dL (0-129) HDL Cholesterol 41 mg/dL (40-60) Cholesterol/HDL Ratio 4.2 Urine Opiates Screen Neg (NEG) Urine Methadone Screen Neg (NEG) Urine Barbiturates Neg (NEG) Urine Phencyclidine Screen Neg (NEG) Urine Amphetamine/Methamphetamine Neg (NEG) Urine Benzodiazepines Screen Neg (NEG) Urine Cocaine Screen Neg (NEG) Urine Cannabinoids Screen Pos (NEG) Urine Ethyl Alcohol Neg (NEG) Magnesium Level 2.2 mg/dL (1.8-2.4) Thyroid Stimulating Hormone (TSH) 1.928 uIU/mL (0.358-3.74) SARS-CoV-2 Antigen (Rapid) Negative (NEGATIVE) Laboratory Tests Test 11/13/20 16:05 SARS-CoV-2 Antigen (Rapid) Negative (NEGATIVE) Medications Current Medications Aspirin (Aspirin Chewable) 324 mg 1X ONCE PO Last administered on 11/13/20at 06:23; Start 11/13/20 at 06:30; Stop 11/13/20 at 06:32; Status DC Aspirin (Aspirin Chewable) 324 mg 1X ONCE PO ; Start 11/13/20 at 07:15; Stop 11/13/20 at 07:16; Status DC Ondansetron HCl (Zofran) 4 mg PRN Q8HRS PRN IVP NAUSEA/VOMITING; Start 11/13/20 at 07:15; Stop 11/14/20 at 07:14; Status DC Active Scripts Active Ciprodex Otic Suspension (Ciprofloxacin Hcl/Dexameth) 7.5 Ml Drops.susp 3 Drop RIGHT EAR BID 7 Days Reported Atorvastatin Calcium 20 Mg Tablet 1 Tab PO DAILY Vitals/I & O Vital Sign - Last 24 Hours 11/13/20 11/13/20 11/13/20 11/14/20 19:00 20:00 22:50 03:00 Temp 98.0 98.0 97.9 98.0 98.0 97.9 Pulse 83 55 55 Resp 20 18 16 B/P (MAP) 153/65 (94) 140/67 (91) 105/51 (69) Pulse Ox 96 99 100 O2 Delivery Room Air Room Air Room Air Room Air 11/14/20 11/14/20 11/14/20 07:24 08:00 10:25 Temp 98.1 97.7 98.1 97.7 Pulse 54 71 Resp 16 18 B/P (MAP) 118/66 (83) 124/63 (83) Pulse Ox 99 100 O2 Delivery Room Air Room Air Room Air Intake and Output 11/13/20 11/13/20 11/14/20 15:00 23:00 07:00 Intake Total 500 ml 650 ml 500 ml Balance 500 ml 650 ml 500 ml Justifications for Admission Other Justification MATTIE SANTIAGO MD Nov 14, 2020 14:25
== END 2020-11-14 13:43 | disposition home or self-care (01) ==
LOC: ER 05:46 → 6 SOUTH 07:15
PROVIDERS: ADMIT Internal Medicine; ATTEND Internal Medicine
DX: R07.2 Precordial pain (principal); E78.5 Hyperlipidemia, unspecified; F12.10 Cannabis abuse, uncomplicated; F17.200 Nicotine dependence, unspecified, uncomplicated; J45.909 Unspecified asthma, uncomplicated; I49.3 Ventricular premature depolarization; Z20.822 Contact with and (suspected) exposure to COVID-19; Z82.49 Family history of ischemic heart disease and other diseases of the circulatory system; Z85.89 Personal history of malignant neoplasm of other organs and systems
CPT/HCPCS: 36415; 71045; 80053; 80061; 80307; 83735; 83880; 84443; 84484; 85025; 87426; 93005; 93306; 99285; G0378; G0379